=== PATIENT | female | born 1965 | race African-American/Black ===

== ENCOUNTER 2021-07-29 09:30 | Emergency (ER) | payer OTHER ==
[2021-07-29 11:07] LABS: INFLUENZA A NAA NEGATIVE (NEGATIVE)
[2021-07-29 11:16] LABS: CORONAVIRUS 2019 SARS-COV-2 POSITIVE (NEGATIVE)
[2021-07-29 12:08] LABS: BASOPHIL 0.5 % (0-2); EOSINOPHIL 1.6 % (0-5); HCT 46.6 % (37.0-47.0); HGB 14.6 g/dl (12.5-16.0); LYMPHOCYTE 26.7 % (15-48); MCH 27.1 pg (25.0-31.0); MCHC 31.3 g/dL (32.0-36.0); MCV 86.5 fL (78.0-100.0); MONOCYTE 8.9 % (0-12); NRBC 0; PLT 238 K/uL (150-400); RBC 5.39 M/uL (4.20-5.40); RDW 14.7 % (11.5-14.0); WBC 7.7 K/uL (4.0-10.5)
[2021-07-29 12:15] LABS: ALBUMIN 3.3 g/dL (3.4-5.0); BILIRUBIN - TOTAL 0.2 mg/dL (0.2-1.0); BUN/CREAT RATIO (CALC) 17.7 RATIO; C-REACTIVE PROTEIN 2.3 mg/dL (<=0.90); CREATININE 0.96 mg/dL (0.51-0.95); GLOBULIN (CALCULATION) 4.3 g/dL; MAGNESIUM 2.2 mg/dL (1.8-2.4); POTASSIUM 4.1 mmol/L (3.5-5.1); TOTAL PROTEIN 7.6 g/dL (6.4-8.2)
[2021-07-29] MEDS ORDERED: ONDANSETRON ODT4 MG PO (15:11)
[2021-07-29] MEDS ORDERED: VENTOLIN HFA18 GM INH (15:11)
[2021-07-29] MEDS ORDERED: NAPROXEN500 MG PO (15:11)
[2021-07-29] MEDS ORDERED: TESSALON PERLE100 MG PO (15:11)
== END 2021-07-29 15:43 | disposition home or self-care (01) ==
LOC: FER 09:30
PROVIDERS: Emergency Medicine
DX: U07.1 COVID-19 (principal); I10 Essential (primary) hypertension
CPT/HCPCS: 36415; 80053; 82728; 83615; 83735; 85025; 85379; 86140; 93005; G0480; J1885; J2405; J7030; U0002